=== PATIENT | male | born 1945 | race Caucasian/White ===

== ENCOUNTER 2017-12-03 23:08 | Emergency (ER) | payer MEDICARE, MEDICAID ==
[~2017-12-03] VITALS: Ht 177.8 cm; Wt 121.0 kg
[2017-12-03] MEDS ORDERED: LISI-600 PO (23:22)
[2017-12-03] MEDS ORDERED: GLIP5TAB13 PO (23:22)
[2017-12-04] MEDS ORDERED: HYDR12.5 PO (01:13)
[2017-12-04] MEDS ORDERED: GLIP5TAB13 PO (01:13)
[2017-12-04] MEDS ORDERED: LISI-600 PO (01:13)
[2017-12-04] MEDS ORDERED: aspirin 325mg tablet PO ONE (01:15)
[2017-12-04] MEDS ORDERED: lisinopril 10 MG tablet PO ONE (01:15)
[2017-12-04] MEDS ORDERED: glipizide 5mg tablet PO SCH (01:15)
[2017-12-04 01:35] VITALS: BP 169/92
== END 2017-12-04 01:37 | disposition home or self-care (01) ==
LOC: ER 23:09
DX: I10 Essential (primary) hypertension (principal); E11.65 Type 2 diabetes mellitus with hyperglycemia; H53.8 Other visual disturbances; Z79.899 Other long term (current) drug therapy
CPT/HCPCS: 82948; 93005; 99283

== ENCOUNTER 2021-10-01 07:53 | Inpatient (IN) | payer MEDICARE, MEDICAID ==
[2021-10-01] VITALS (18 sets, daily range): BP systolic 113–144; BP diastolic 61–89
[~2021-10-01] VITALS: Ht 177.8 cm; Wt 125.7 kg
[~2021-10-01 07:53] MED LIST: ACET-1008 PO; ASPI-1071 PO; ATOR-2 PO; LACTC PO; LISI10TA27 PO; ceFAZolin inj. 3,000 MG in normal saline 100ml IV soln 100 ML IV ONE; famotidine 20mg tablet PO ONE; ringers solution, lacted 1,000 ML IV SCH; vancomycin 1,500 MG in NS 300ml IV soln IV ONE
[2021-10-01] MEDS ORDERED: epiNEPHrine 1 mg/ml inj ONE (10:14)
[2021-10-01] MEDS ORDERED: ketorolac trometh. 30mg/ml inj. ONE (10:14)
[2021-10-01] MEDS ORDERED: ROPIVAcaine 0.5% (5mg/ml) 30ml vial ONE ×2 (10:14→14:28)
[2021-10-01 10:18] LABS: BASOPHILS % (AUTO) 0.4 % (0-1); EOSINOPHILS # (AUTO) 0.3 X10'3 (0-0.9); EOSINOPHILS % (AUTO) 3.2 % (0-6); LYMPHOCYTES % (AUTO) 22.7 % (21-51); MEAN CORPUSCULAR HEMOGLOBIN 31.6 PG (27.0-31.0); MEAN CORPUSCULAR HGB CONC 34.6 g/dL (33.0-36.5); MEAN CORPUSCULAR VOLUME 91.4 FL (78-98); MEAN PLATELET VOLUME 8.2 FL (7.4-10.4); MONOCYTES # (AUTO) 0.6 X10'3 (0-0.9); MONOCYTES % (AUTO) 6.5 % (2-12); NEUTROPHILS # (AUTO) 5.8 X10'3 (1.8-7.7); NEUTROPHILS % (AUTO) 67.2 % (42-75); PRE OP HEMATOCRIT 39.3 % (42.0-52.0); PRE OP HEMOGLOBIN 13.6 g/dL (14.0-17.9); PRE OP PLATELET COUNT 276 X10'3 (140-440); PRE OP PROTIME 10.3 SECONDS (9.0-12.0)
[2021-10-01 10:20] LABS: ALBUMIN 3.6 G/DL (3.4-5.0); ALBUMIN/GLOBULIN RATIO 0.8 (1.1-1.5); ALKALINE PHOSPHATASE 111 IU/L (46-116); BLOOD UREA NITROGEN 25 MG/DL (7-18); BUN/CREATININE RATIO 32.1 (5.4-32.0); CALCIUM 9.4 MG/DL (8.5-10.1); CHLORIDE 107 MMOL/L (99-107); CREATININE 0.78 MG/DL (0.60-1.10); PRE OP ALT 31 U/L (30-65); PRE OP ANION GAP 8 (8-16); PRE OP AST 18 U/L (10-37); PRE OP BILIRUB, TOTAL 0.6 MG/DL (0.0-1.0); PRE OP GLUCOSE 135 MG/DL (70-104); PRE OP POTASSIUM 3.9 MMOL/L (3.4-5.1); PRE OP SODIUM 143 MMOL/L (135-145); TOTAL CARBON DIOXIDE 27.9 MMOL/L (24-32); TOTAL PROTEIN 7.9 G/DL (6.4-8.2); eGFR > 90 ML/MIN
[2021-10-01] MEDS ORDERED: tranexamic acid inj. 1,000 MG in 0.7% saline 100 ML PMX IV ONE ×2 (10:40→17:50)
[2021-10-01] MEDS ORDERED: tetracaine 1% (10mg/ml) pres. free inj. ONE (12:15)
[2021-10-01] MEDS ORDERED: morphine 10mg/ml inj. ONE (12:18)
[2021-10-01] MEDS ORDERED: FENTANYL CITRATE/PF 50 MCG/1 ML VIAL ONE (12:22)
[2021-10-01] MEDS ORDERED: MIDAZolam 1mg/ml 10ml vial ONE (12:22)
[2021-10-01] MEDS ORDERED: morphine 2 MG/ML inj. syringe IV PRN (13:50)
[2021-10-01] MEDS ORDERED: ROPIVAcaine 0.2%/PF PUMP/bolus 545 ML ADDCANAL SCH (13:50)
[2021-10-01] MEDS ORDERED: meperidine/PF 25mg/ml syringe IV PRN ×3 (13:50)
[2021-10-01] MEDS ORDERED: proCHLORperazine 10 MG/2 ml inj IV PRN (13:50)
[2021-10-01] MEDS ORDERED: ondansetron/PF 4mg/2ml inj IV PRN ×2 (13:50→15:45)
[2021-10-01] MEDS ORDERED: morphine 4 MG/ML inj SYRINge IV PRN (13:50)
[2021-10-01] MEDS ORDERED: ringers solution, lacted 1,000 ML IV SCH (13:50)
[2021-10-01] MEDS ORDERED: ROPIVAcaine 0.2% (10 MG/5 ML) BOLUS INJECTION ADDCANAL PRN (13:50)
[2021-10-01] MEDS ORDERED: vancomycin 1,000mg inj ONE (14:05)
--- NOTE | 2021-10-01 15:43 | NUR ---
Received from OR via SURGICAL BED , accompanied by Anesthesiologist VIRY and report given by Anesthesiolgist. PATIENT WITH 20G PIV IN RIGHT AC RUNNING LR AT 100. T7 SPINAL LEVEL- DENIES PAIN. PATIENT WITH KNEE WRAP PRESENT AND POWDER PACK IN PLACE. + DP ON DOPPLER. GABBI ELIZABETH ON FOR COMFORT. Addendum: 10/01/21 at 1555 by Rajinder Villeda RN, RN Amended: Links added.
[2021-10-01] MEDS ORDERED: HYDROmorphone 1 mg/ml syringe IV PRN (15:45)
[2021-10-01] MEDS ORDERED: acetaminophen 325mg tablet PO PRN (15:45)
[2021-10-01] MEDS ORDERED: diphenhydrAMINE 25mg capsule PO PRN ×2 (15:45)
[2021-10-01] MEDS ORDERED: magnesium hydroxide 30ml (MOM) UD suspension PO PRN (15:45)
[2021-10-01] MEDS ORDERED: bisacodyl 10mg suppository rectal RC PRN (15:45)
[2021-10-01] MEDS ORDERED: oxyCODONE IR 5mg (immed. release) tablet PO PRN ×2 (15:45)
[2021-10-01] MEDS ORDERED: HYDROmorphone inj. 0.5 MG/0.5 ML DISP.SYRIN IV PRN (15:45)
--- NOTE | 2021-10-01 17:03 | NUR ---
ALL DC CRITERIA HAS BEEN MET. VSS. DENIES PAIN SPINAL SENSATION LEVEL IS AT T9-T10. PATIENT TRANSFERED VIA BED TO ROOM 349A- RN PRESENT TO ACCEPT PATIENT CARE. Addendum: 10/01/21 at 1710 by Rajinder Villeda RN RN Amended: Links added.
--- NOTE | 2021-10-01 18:31 | NUR ---
Patient received from recovery room. Skin is intact. Patient started to have mild tremors, blood sugar was 194, VSS, patient says he feels "okay". Reported to night RN to monitor.
--- NOTE | 2021-10-01 18:32 | NUR ---
Patient in room [facility]. I have received report from SAHY Jeong and had the opportunity to ask questions and assume patient care.
--- NOTE | 2021-10-01 18:32 | NUR ---
Problems reprioritized. Patient report given, questions answered & plan of care reviewed with Shena DAY.
[2021-10-01] MEDS: potassium cl 20mEq in 1/2 NS 1,000 ML IV SCH (19:09)
[2021-10-01] MEDS ORDERED: vancomycin/NS 1 GM ADD-VANTAGE 250 ML IV SCH (20:00)
[2021-10-01] MEDS: ceFAZolin/D5W- 1GM premix 50 ML IV SCH (21:10)
[2021-10-01] MEDS: sennosides 8.6mg tablet PO SCH (21:10)
[2021-10-01] MEDS: gabapentin 300mg capsule PO SCH (21:11)
[2021-10-01] MEDS: acetaminophen 325mg tablet PO SCH (21:11)
--- NOTE | 2021-10-01 21:23 | NUR ---
Patient got late tray and finished eating about 30 minutes ago a little before 2100. Will do nighttime check of blood glucose now.
--- NOTE | 2021-10-01 21:43 | NUR ---
Pt did not have diabetic protocol ordered let Charge SHAY Hoskins know. 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
[2021-10-02 00:01] VITALS: BP 141/81
[2021-10-02] MEDS: ceFAZolin/D5W- 1GM premix 50 ML IV SCH (00:59)
[2021-10-02] MEDS: acetaminophen 325mg tablet PO SCH ×4 (02:36→21:00)
[2021-10-02] MEDS: potassium cl 20mEq in 1/2 NS 1,000 ML IV SCH ×4 (05:09→23:45)
[2021-10-02 06:04] LABS: BASOPHILS % (AUTO) 0.1 % (0-1); EOSINOPHILS % (AUTO) 0.1 % (0-6); HEMATOCRIT 32.8 % (42.0-52.0); HEMOGLOBIN 11.3 g/dl (14.0-17.9); LYMPHOCYTES # (AUTO) 0.9 X10'3 (1.1-4.8); LYMPHOCYTES % (AUTO) 6.8 % (21-51); MEAN CORPUSCULAR HEMOGLOBIN 31.6 PG (27.0-31.0); MEAN CORPUSCULAR HGB CONC 34.3 g/dL (33.0-36.5); MEAN CORPUSCULAR VOLUME 92.1 FL (78-98); MEAN PLATELET VOLUME 7.9 FL (7.4-10.4); MONOCYTES # (AUTO) 0.9 X10'3 (0-0.9); NEUTROPHILS # (AUTO) 11.6 X10'3 (1.8-7.7); PLATELET COUNT 221 X10'3 (140-440); RED BLOOD COUNT 3.56 X10'6 (4.70-6.10); RED CELL DISTRIBUTION WIDTH 12.7 % (11.5-14.5); WHITE BLOOD COUNT 13.5 X10'3 (4.5-11.0)
--- NOTE | 2021-10-02 06:29 | NUR ---
Problems reprioritized. Patient report given, questions answered & plan of care reviewed with SHAY Jeong.
[2021-10-02 06:39] LABS: ANION GAP 11 (8-16); CHLORIDE 106 MMOL/L (99-107); POTASSIUM 4.6 MMOL/L (3.5-5.1); SODIUM 140 MMOL/L (135-145); TOTAL CARBON DIOXIDE 22.7 MMOL/L (24-32)
[2021-10-02 07:00] VITALS: BP 144/79
[2021-10-02] MEDS: gabapentin 300mg capsule PO SCH ×3 (07:05→21:01)
[2021-10-02] MEDS: enoxaparin 40mg/0.4ml syringe SQ SCH (07:05)
--- NOTE | 2021-10-02 10:42 | NUR ---
Patient had episode of dizziness while getting up from bedside chair to transfer back to bed. Vital signs were stable and patient remained alert. Kept him in bedside chair, laying flat and will reattempt to get him back to bed with PT.
[2021-10-02 11:00] VITALS: BP 126/60
[2021-10-02] MEDS ORDERED: acetaminophen 325mg tablet PO PRN (11:10)
--- NOTE | 2021-10-02 11:48 | NUR ---
Case management paged to inform of patient discharge per Mackenzie Toledo.
--- NOTE | 2021-10-02 12:22 | NUR ---
DC blood sugar checks per Paris ALEJANDRA.
--- NOTE | 2021-10-02 12:34 | NUR ---
Joint surgery/DM Consults: Pt s/p L knee surgery this admit w/ hx T2DM A1C 7.7% per EMR. Pt seen by ILDA for written/verbal high protein/DM diet eds w/ RD contact information provided. ILDA encouraged pt to contact dietitian's office if further questions/concerns. Addendum: 10/02/21 at [address] Amended: Links added.
--- NOTE | 2021-10-02 16:10 | NUR ---
Arauz catheter was removed by student and professor per Gisele Toleod orders. Patient pulled out IV and On-Q pump accidentally as he expected to be discharged. Paris is aware and says it is okay for patient to not have IV access and on-q pump will not be replaced. Sister Ny was contacted and updated with plan of care. Patient will most likely be discharged tomorrow when sets up discharge with .
--- NOTE | 2021-10-02 18:04 | NUR ---
On-Q pump was disposed of in med waste room
--- NOTE | 2021-10-02 18:20 | NUR ---
Problems reprioritized. Patient report given, questions answered & plan of care reviewed with Shena DAY.
--- NOTE | 2021-10-02 18:49 | NUR ---
Patient in room [facility]. I have received report from SHAY Jeong and had the opportunity to ask questions and assume patient care.
[2021-10-02 20:00] VITALS: BP 121/60
[2021-10-02] MEDS ORDERED: atorvastatin 20mg tablet PO SCH (21:00)
[2021-10-02] MEDS: sennosides 8.6mg tablet PO SCH (21:00)
[2021-10-02] MEDS: lactobacillus rhamnosus 10,000 MMU CELLS/CAPSULE PO SCH (21:01)
[2021-10-02] MEDS: celeCOXIB 100mg capsule PO SCH (21:01)
[2021-10-03 00:01] VITALS: BP 135/80
[2021-10-03] MEDS: acetaminophen 325mg tablet PO SCH ×2 (02:50→10:01)
--- NOTE | 2021-10-03 06:30 | NUR ---
Patient in room [facility]. I have received report from SHAY Chatterjee and had the opportunity to ask questions and assume patient care.
--- NOTE | 2021-10-03 06:50 | NUR ---
Problems reprioritized. Patient report given, questions answered & plan of care reviewed with SHAY Moore.
[2021-10-03 07:08] LABS: BASOPHILS % (AUTO) 0.2 % (0-1); EOSINOPHILS # (AUTO) 0.3 X10'3 (0-0.9); EOSINOPHILS % (AUTO) 2.8 % (0-6); HEMOGLOBIN 10.7 g/dl (14.0-17.9); LYMPHOCYTES # (AUTO) 1.2 X10'3 (1.1-4.8); LYMPHOCYTES % (AUTO) 11.8 % (21-51); MEAN CORPUSCULAR HGB CONC 34.6 g/dL (33.0-36.5); MEAN CORPUSCULAR VOLUME 92.4 FL (78-98); MEAN PLATELET VOLUME 8.1 FL (7.4-10.4); MONOCYTES # (AUTO) 1.1 X10'3 (0-0.9); MONOCYTES % (AUTO) 10.8 % (2-12); NEUTROPHILS # (AUTO) 7.3 X10'3 (1.8-7.7); NEUTROPHILS % (AUTO) 74.4 % (42-75); PLATELET COUNT 213 X10'3 (140-440); RED BLOOD COUNT 3.35 X10'6 (4.70-6.10); RED CELL DISTRIBUTION WIDTH 12.9 % (11.5-14.5); WHITE BLOOD COUNT 9.8 X10'3 (4.5-11.0)
[2021-10-03 08:00] VITALS: BP 156/76
[2021-10-03] MEDS ORDERED: lisinopril 2.5mg tablet PO SCH (08:00)
--- NOTE | 2021-10-03 08:11 | NUR ---
Informed Mackenzie Toledo of BG levels from prior accuchecks & CMPs. No orders received except to not perform any further accuchecks.
[2021-10-03] MEDS: lactobacillus rhamnosus 10,000 MMU CELLS/CAPSULE PO SCH (10:01)
[2021-10-03] MEDS: gabapentin 300mg capsule PO SCH (10:01)
[2021-10-03 10:02] VITALS: BP_SYST 156
[2021-10-03] MEDS: celeCOXIB 100mg capsule PO SCH (10:02)
[2021-10-03] MEDS: enoxaparin 40mg/0.4ml syringe SQ SCH (10:02)
--- NOTE | 2021-10-03 11:35 | NUR ---
Pt transferred to [facility] via [facility]. No IV. All belongings sent w/pt.
[2021-10-03] MEDS ORDERED: acetaminophen 325mg tablet PO PRN (15:45)
== END 2021-10-03 11:38 | DRG 470 ==
LOC: PAS IN 07:53 → SUR 3N 16:57
PROVIDERS: ADMIT Orthopaedic Surgery; ATTEND Orthopaedic Surgery
PROC: 3E0T3BZ Introduction of Anesthetic Agent into Peripheral Nerves and Plexi, Percutaneous Approach (ICD-10-PCS; 2021-10-01)
PROC: 3E0T33Z Introduction of Anti-inflammatory into Peripheral Nerves and Plexi, Percutaneous Approach (ICD-10-PCS; 2021-10-01)
PROC: 0SRD0J9 Replacement of Left Knee Joint with Synthetic Substitute, Cemented, Open Approach (ICD-10-PCS; principal; 2021-10-01 12:16)
DX: M17.12 Unilateral primary osteoarthritis, left knee (principal); M85.662 Other cyst of bone, left lower leg; M21.162 Varus deformity, not elsewhere classified, left knee; Z20.822 Contact with and (suspected) exposure to COVID-19; E11.9 Type 2 diabetes mellitus without complications; I10 Essential (primary) hypertension; E66.9 Obesity, unspecified; Z68.39 Body mass index [BMI] 39.0-39.9, adult; Z79.899 Other long term (current) drug therapy; Z79.82 Long term (current) use of aspirin
CPT/HCPCS: 36415; 73560; 80051; 80053; 82948; 83036; 85025; 85610; 85730; 87081; 87635; 97110; 97161; 97530; A4215; A7000; C1713; C1758; C1776; C9250; G0378; J0171; J0690; J1650; J1885; J2250; J2274; J2795; J3010; J3370; J3480; J3490; J7040; J7120